=== PATIENT | female | born 1995 | race Caucasian/White ===

== ENCOUNTER 2022-05-25 16:48 | Emergency (ER) | payer MEDICAID ==
[~2022-05-25] VITALS: Ht 165.1 cm; Wt 71.0 kg
[2022-05-25 16:54] VITALS: BP 127/85
[2022-05-25] MEDS ORDERED: ACETAMINOPHEN 325MG TABLET PO ONE (18:00)
[2022-05-25 19:28] LABS: CLARITY URINE TURBID (CLEAR); COLOR URINE YELLOW (YELLOW); KETONES URINE NEGATIVE (NEGATIVE); LEUKOCYTE ESTERASE URINE 3+ (NEGATIVE); NITRITE URINE NEGATIVE (NEGATIVE); OCCULT BLOOD URINE NEGATIVE (NEGATIVE); PROTEIN URINE NEGATIVE (NEGATIVE); UROBILINOGEN URINE 0.2 E.U./dL (0.2-1.0)
[2022-05-25] MEDS ORDERED: METR-354 MT (20:47)
[2022-05-25] MEDS ORDERED: METRONIDAZOLE 250MG TABLET PO ONE (21:00)
== END 2022-05-25 21:12 | disposition home or self-care (01) ==
LOC: ER 16:48
DX: N76.0 Acute vaginitis (principal); B96.89 Other specified bacterial agents as the cause of diseases classified elsewhere
CPT/HCPCS: 81003; 87210; 87591; 99284; Z7610